=== PATIENT | female | born 1995 | race Caucasian/White ===

== ENCOUNTER 2016-12-23 10:02 | Emergency (ER) | payer OTHER ==
--- NOTE | 2016-12-23 10:21 | EDPHY ---
H & P Time Seen by Provider: 12/23/16 10:20 HPI/ROS: CHIEF COMPLAINT: Severe dizziness HISTORY OF PRESENT ILLNESS: Patient has had dizziness starting about 5 days ago which she describes as feeling like she is on a boat associated with nausea. It is worse with turning her head or with standing and started this past Sunday. She saw Urgent Care yesterday and got IV fluids but presents today with continued symptoms. She denies recent trauma or neck pain or headache. No double vision. No actual syncope or lightheadedness. Symptoms are severe and she feels like she has getting dehydrated as she has been having difficulty eating and drinking normally because of the nausea. REVIEW OF SYSTEMS: Eye: no change in vision ENT: no sore throat Cardiac: no chest pain or syncope Pulmonary: no cough or SOB Abdomen: HPI, no abdominal pain Musculoskeletal: no back pain or neck pain Skin: no rash Neuro: no headache Constitutional: no fever : no urinary symptoms A comprehensive 10 point review of systems is otherwise negative aside from elements mentioned in the history of present illness. PAST MEDICAL HISTORY: Negative Social history: Not , no family history of venous thromboembolism or dissection. No recent acceleration or deceleration trauma. General Appearance: Alert and conversant, cooperative. Eyes: No scleral icterus. Nystagmus on looking to the left but extraocular motion intact ENT, Mouth: Slightly dry mucous membranes, normal tympanic membranes. Respiratory: Normal respiratory effort, breath sounds equal, lungs are clear to auscultation. Cardiovascular: Regular rate and rhythm. Gastrointestinal: Abdomen is soft and non tender. Neurological: Alert and oriented x3. Normally conversant. Face symmetric, normal movement and sensation in all extremities. Normal [id number] bilaterally and normal [id number] bilaterally. Skin: Warm and dry, no rashes. Musculoskeletal: No peripheral edema and no joint swelling. Psychiatric: Not agitated. Emergency Department course/MDM: Patient presents with symptoms consistent with peripheral vertigo, acute. She does not have red flags to suggest she is at high risk for central vertigo or vertebral dissection. Plan for antiemetics, IV fluids, oral meclizine. 1235: feels better, walked to the bathroom, less vertigo, nausea resolved. Has primary care follow-up next week already. Smoking Status: Former smoker Constitutional: Initial Vital Signs Temperature (C) 36.8 C 12/23/16 10:11 Heart Rate 88 12/23/16 10:11 Respiratory Rate 18 12/23/16 10:11 Blood Pressure 121/87 H 12/23/16 10:11 O2 Sat (%) 99 12/23/16 10:11 O2 Delivery Mode Room Air Allergies/Adverse Reactions: No Known Allergies Allergy (Unverified 12/23/16 10:10) Home Medications: Medication Instructions Recorded LaMICtal 12/23/16 Lexapro 12/23/16 Meclizine HCl [Meclizine HCl 25 mg 25 mg PO Q6 PRN #20 tab 12/23/16 (RX,OTC)] Promethazine HCl [Phenergan 25mg 25 mg PO Q6-8PRN PRN #20 tab 12/23/16 (RX)] traZODone 12/23/16 Medical Decision Making Differential Diagnosis: Differential diagnosis considered for dizziness including but not limited to peripheral and central causes of vertigo, orthostatic causes including dehydration, and blood loss. - Data Points Laboratory Results: Laboratory Results 12/23/16 10:45 12/23/16 10:45 12/23/16 10:45 WBC 11.78 H 10^3/uL (3.80-9.50) RBC 5.05 10^6/uL (4.18-5.33) Hgb 13.2 g/dL (12.6-16.3) Hct 40.4 % (38.0-47.0) MCV 80.0 L fL (81.5-99.8) MCH 26.1 L pg (27.9-34.1) MCHC 32.7 g/dL (32.4-36.7) RDW 14.5 % (11.5-15.2) Plt Count 357 10^3/uL (150-400) MPV 10.8 fL (8.7-11.7) Neut % (Auto) 71.0 % (39.3-74.2) Lymph % (Auto) 23.9 % (15.0-45.0) Hendricks % (Auto) 4.5 % (4.5-13.0) Eos % (Auto) 0.1 L % (0.6-7.6) Baso % (Auto) 0.2 L % (0.3-1.7) Nucleat RBC Rel Count 0.0 % (0.0-0.2) Absolute Neuts (auto) 8.36 H 10^3/uL (1.70-6.50) Absolute Lymphs (auto) 2.82 10^3/uL (1.00-3.00) Absolute Monos (auto) 0.53 10^3/uL (0.30-0.80) Absolute Eos (auto) 0.01 L 10^3/uL (0.03-0.40) Absolute Basos (auto) 0.02 10^3/uL (0.02-0.10) Absolute Nucleated RBC 0.00 10^3/uL (0-0.01) Immature Gran % 0.3 % (0.0-1.1) Immature Gran # 0.04 10^3/uL (0.00-0.10) Sodium 144 mEq/L (134-144) Potassium 4.2 mEq/L (3.5-5.2) Chloride 108 mEq/L (97-110) Carbon Dioxide 22 mEq/l (22-31) Anion Gap 14 mEq/L (8-16) BUN 8 mg/dL (7-23) Creatinine 0.9 mg/dL (0.6-1.0) Estimated GFR > 60 Glucose 101 H mg/dL (70-100) Calcium 9.7 mg/dL (8.5-10.4) Beta HCG, Qual NEGATIVE Medications Given: Discontinued Medications Sodium Chloride (Ns) 1,000 mls @ 0 mls/hr IV ONCE ONE PRN Reason: Wide Open Stop: 12/23/16 10:34 Last Admin: 12/23/16 11:01 Dose: 1,000 mls Meclizine HCl (Meclizine Hcl) 25 mg PO EDNOW ONE Stop: 12/23/16 10:35 Last Admin: 12/23/16 11:00 Dose: 25 mg Promethazine HCl (Phenergan) 12.5 mg IVP EDNOW ONE Stop: 12/23/16 10:34 Last Admin: 12/23/16 11:01 Dose: 12.5 mg Departure - Departure Disposition: Home, Routine, Self-Care Clinical Impression: Peripheral vertigo Condition: Good Instructions: Benign Paroxysmal Positional Vertigo (ED) Referrals: Abrahan Toscano MD [Medical Doctor] - As per Instructions Prescriptions: Meclizine HCl [Meclizine HCl 25 mg (RX,OTC)] 25 mg PO Q6 PRN #20 tab PRN Reason: Dizziness Promethazine HCl [Phenergan 25mg (RX)] 25 mg PO Q6-8PRN PRN #20 tab PRN Reason: Nausea/Vomiting, Use 2nd
[2016-12-23] MEDS ORDERED: NS 1,000 ML IV ONE (10:33)
[2016-12-23] MEDS ORDERED: PROMETHAZINE HCL 25 MG/ML INJ IVP ONE (10:33)
[2016-12-23] MEDS ORDERED: MECLIZINE HCL 25 MG TAB PO ONE (10:34)
[2016-12-23 10:54] LABS: % IMMATURE GRANULYOCYTES 0.3 % (0.0-1.1); ABSOLUTE IMMATURE GRANULOCYTES 0.04 10^3/uL (0.00-0.10); ADD DIFF? NO; ADD MORPH? NO; ADD SCAN? NO; ATYPICAL LYMPHOCYTE FLAG 10 (0-99); FRAGMENT RBC FLAG 0 (0-99); HEMATOCRIT 40.4 % (38.0-47.0); HEMOGLOBIN 13.2 g/dL (12.6-16.3); LEFT SHIFT FLG 0 (0-99); LIPEMIA HEMOLYSIS FLAG 80 (0-99); MEAN CELL HEMOGLOBIN 26.1 pg (27.9-34.1); MEAN CELL HEMOGLOBIN CONCENTR. 32.7 g/dL (32.4-36.7); MEAN PLATELET VOLUME 10.8 fL (8.7-11.7); PLATELET CLUMPS FLAG 20 (0-99); PLATELET COUNT 357 10^3/uL (150-400); RED BLOOD CELL COUNT 5.05 10^6/uL (4.18-5.33); RED CELL DISTRIBUTION WIDTH 14.5 % (11.5-15.2)
[2016-12-23 11:24] LABS: ANION GAP 14 mEq/L (8-16); CALCIUM 9.7 mg/dL (8.5-10.4); CARBON DIOXIDE 22 mEq/l (22-31); CHLORIDE 108 mEq/L (97-110); CREATININE 0.9 mg/dL (0.6-1.0); GLOMERULAR FILTRATION RATE > 60; GLUCOSE 101 mg/dL (70-100); POTASSIUM 4.2 mEq/L (3.5-5.2); SODIUM 144 mEq/L (134-144)
[2016-12-23 12:05] VITALS: RESP 16
[2016-12-23 12:55] VITALS: BP 115/75; PULSE 81; TEMP 97.7; O2SAT 95
== END 2016-12-23 12:55 | disposition home or self-care (01) ==
DX: H81.399 Other peripheral vertigo, unspecified ear (principal); Z87.891 Personal history of nicotine dependence
CPT/HCPCS: 96374; J2550